=== PATIENT | female | born 1940 | race Caucasian/White ===

== ENCOUNTER 2023-05-04 12:35 | Emergency (ER) | payer MEDICARE ==
[~2023-05-04] VITALS: Ht 167.6 cm; Wt 58.5 kg
[2023-05-04 13:27] LABS: BASOPHILS ABSOLUTE AUTO 0.04 K/mm3 (0.00-0.23); BASOPHILS PERCENT AUTO 1 % (0-2); EOSINOPHILS ABSOLUTE AUTO 0.41 K/mm3 (0.00-0.68); EOSINOPHILS PERCENT AUTO 6 % (0-6); Hematocrit 37.9 % (33.0-51.0); Hemoglobin 12.2 g/dL (11.5-16.0); IMMATURE GRAN PERCENT AUTO 0 % (0-1); LYMPHOCYTES ABSOLUTE AUTO 1.42 K/mm3 (0.84-5.20); LYMPHOCYTES PERCENT AUTO 22 % (21-46); MONOCYTES ABSOLUTE AUTO 0.55 K/mm3 (0.16-1.47); MONOCYTES PERCENT AUTO 9 % (4-13); Mean Corpuscular HGB 29.3 pg (26.0-34.0); Mean Corpuscular HGB Conc 32.2 g/dL (31.5-36.5); Mean Corpuscular Volume 91 fL (80-100); Mean Platelet Volume 11.2 fL (9.1-12.4); NEUTROPHILS ABSOLUTE AUTO 4.01 K/mm3 (1.96-9.15); NEUTROPHILS PERCENT AUTO 62 % (41-73); Platelet Count 207 K/mm3 (150-400); RDW Coefficient Variation 14.6 % (11.7-14.2); RDW Standard Deviation 48.4 fL (35.1-46.3); Red Blood Cell Count 4.17 M/mm3 (3.80-5.20); White Blood Cell Count 6.43 K/mm3 (4.00-11.30)
[2023-05-04 13:49] LABS: Albumin, Blood 3.2 g/dL (3.4-5.0); Albumin/Globulin Ratio 0.8 (0.8-1.8); Bilirubin, Total 0.5 mg/dL (0.1-1.0); Calcium, Blood 10.4 mg/dL (8.5-10.1); Creatinine, Blood 1.47 mg/dL (0.40-1.00); Globulin, Blood 4.1 g/dL (2.2-4.0); Potassium, Blood 4.2 mmol/L (3.5-5.5); Total Protein, Blood 7.3 g/dL (6.4-8.2)
[2023-05-04 16:00] VITALS: BP 133/64
[2023-05-04] MEDS ORDERED: ROSUVASTATIN CA40 MG PO (21:25)
[2023-05-04] MEDS ORDERED: FUROSEMIDE20 MG PO (21:26)
[2023-05-04] MEDS ORDERED: Ventolin/Prove6.7 GM INH (21:26)
[2023-05-04] MEDS ORDERED: KLOR-CON 1010 ME9 PO (21:26)
[2023-05-04] MEDS ORDERED: ATORVASTATIN CA20 MG PO (21:26)
[2023-05-04] MEDS ORDERED: METOPROLOL SUCC25 MG PO (21:26)
== END 2023-05-04 16:00 | disposition home or self-care (01) ==
LOC: ER 12:35
PROVIDERS: Student in an Organized Health Care Education/Training Program
DX: S00.03XA Contusion of scalp, initial encounter (principal); S60.212A Contusion of left wrist, initial encounter; R42 Dizziness and giddiness; I50.9 Heart failure, unspecified; R00.1 Bradycardia, unspecified; W10.9XXA Fall (on) (from) unspecified stairs and steps, initial encounter; Z88.2 Allergy status to sulfonamides; Z88.8 Allergy status to other drugs, medicaments and biological substances
CPT/HCPCS: 70450; 73110; 80053; 84484; 85025; 93005; 93010; 93242; 99284-25

== ENCOUNTER → 2024-10-07 | Outpatient (CLI) | payer OTHER ==
[~2024-10-07] MED LIST: ATORVASTATIN CA20 MG PO; FUROSEMIDE20 MG PO; KLOR-CON 1010 ME9 PO; METOPROLOL SUCC25 MG PO; ROSUVASTATIN CA40 MG PO; Ventolin/Prove6.7 GM INH
[2024-10-07 20:51] LABS: Creatinine, Urine Random 47.9 mg/dL (27.00-270.00); Microalb/Creat Ratio UR, Rand 317.328 mg/g (0.000-30.000)
== END | disposition home or self-care (01) ==
LOC: LAB 17:45 → LAB SHORT 17:45
PROVIDERS: Family Medicine
DX: E11.22 Type 2 diabetes mellitus with diabetic chronic kidney disease (principal)
CPT/HCPCS: 82043; 82570